=== PATIENT | male | born 1955 | race Caucasian/White ===

== ENCOUNTER 2017-11-03 13:46 | Inpatient (IN) | payer OTHER ==
[~2017-11-03] VITALS: Ht 170.2 cm; Wt 70.3 kg
--- NOTE | ~2017-11-03 | OP ---
PATIENT NAME: DIPTI MONTES MEDICAL RECORD: [id number] :57 LOCATION:.[facility] D.2306 ADMISSION DATE:11/03/17 SURGEON: VICTORIA ROTH MD DATE OF OPERATION: 11/03/2017 PRINCIPAL DIAGNOSES: Perforated diverticulitis with localized peritonitis and pneumoperitoneum. POSTOPERATIVE DIAGNOSES: Perforated diverticulitis with abdominal soilage with diffuse lower abdominal peritonitis and pneumoperitoneum and septicemia. PROCEDURES: 1. Jaleesa's procedure (exploratory laparotomy, sigmoid colectomy, and descending end colostomy). 2. Incidental appendectomy. SURGEON: Victoria Roth MD STRAND GALVANIZER: None. DRAINS: 19-Cuban fully fluted closed drainage system. BLOOD LOSS: 150 cc. ANESTHESIA: General. COMPLICATIONS: None. The risks, possible complications, and alternatives to the procedure were explained to the patient. He elects to proceed. The discussion specifically included, but was not limited to, bleeding requiring emergency reoperation, infection, as well as about the probability of an ileostomy or colostomy. The indication for the incidental appendectomy was to avoid diagnostic confusion in the future should the patient have a recurrence or persistence of abdominal pain. Additionally, the appendix was involved in the inflammatory mass down in the pelvis where the perforated diverticulitis had occurred. OPERATIVE COURSE: The patient was conveyed the operating room urgently on 11/03/2017. General anesthesia was induced by the anesthesia staff. The abdomen was sterilely prepped and draped where the lower midline incision was accomplished. Sharp dissection was carried down through skin and subcutaneous tissue. I incised the linea alba. I entered the peritoneal cavity sharply. An Jerry retractor was placed. Blunt dissection was performed down in the pelvis. I broke up some adhesions. There were 2 loops of small bowel that were involved in the inflammatory mass in the pelvis, which consisted of a ruptured abscess. The appendix was also involved in this inflammatory mass. A window was created in the mesoappendix. I then took down the mesoappendix with the laparoscopic open EnSeal device and stapled across the tip of the cecum with a SHAHEEN-75 stapler. I entered the inner sigmoid fossa. I chose the proximal extent of my resection to be juncture of the descending and sigmoid colons. A window was created in OPERATIVE REPORT [id number] DIPTI MONTES the mesocolon here and I stapled across the colon with a SHAHEEN-75 stapler. I then dissected down into the pelvis. I began to takedown the mesocolon of the sigmoid colon with the open EnSeal device. I incised on either side of the pelvis, I identified both ureters, which were undamaged during the entire operation. They were encircled with umbilical tapes. I continued my dissection onto the mesorectum. I then dissected down to the further static area that I could reach and this was at the upper third of the rectum. I stapled across the rectum with the contour stapler. I then wanted to identify the rectal stump and I did this by suturing a #1 Prolene to the rectal stump and then tying it. The proximal rectum and sigmoid colon were then sent as a single specimen to pathology. I irrigated in the abdomen and aspirated. There was no bleeding. Cultures had been obtained due to the amount of purulent material that was found in the abdomen. I ran the small bowel from the ligament of Treitz to the ileocecal valve. It was undamaged during the operation. I brought a 19-Cuban round fully fluted drain through a stab incision in the right flank. The drain was then placed down in the pelvis. A drain suture was placed and the drain was sutured to skin with a 4-0 nylon suture. I ensured that the small bowel was not twisted on its mesentery. A circular defect was accomplished in the abdominal wall in the left lower quadrant. I dissected down through the skin and subcutaneous tissues. A cruciate incision was accomplished. I dissected down into the peritoneal cavity and then I incised the peritoneum. I was able to grasp the stapled end of the colon and brought it out through this wound without any twisting or kinking. I identified arterial Doppler signal within the stump. I sutured a portion of this stapled end of the colon to the abdominal wall to the external oblique aponeurosis with some 3-0 Vicryls. The lower midline incision was closed with a running looped number #1 PDS. A few 3-0 Vicryl sutures were used to approximate subcutaneous tissue and then just a few james were used to approximate the skin at certain areas. I then covered up the lower midline incision and I then matured the colostomy. I excised the staple line. A Broke type of colostomy was then accomplished, which was an everting type colostomy. This was accomplished with circumferential 3-0 Vicryl sutures. A stomal appliance was then applied. The patient was then extubated and conveyed to post-anesthesia care unit where he was in stable condition. TRANSINT:[id number] Voice Confirmation ID: [id number] DOCUMENT ID: [id number] OPERATIVE REPORT [id number] DIPTI MONTES, VICTORIA DONIS at 1047 CC: [id number] DICTATION DATE: 11/03/172041 CASSANDRA DEVELOPER: 11/03/17 2307 ADM IN [place] [id number] [place] [id number]
[2017-11-03] MEDS ORDERED: FLAGYL500 MG PO (14:03)
[2017-11-03] MEDS ORDERED: [UNRECOGNIZED DRUG - REMARK] (14:03)
[2017-11-03] MEDS ORDERED: PROSTATE MEDICATION (14:03)
[2017-11-03 14:18] LABS: BASOPHILS 0.3 % (0-2); EOSINOPHILS 3.6 % (0-7); HEMATOCRIT 40.7 % (42.0-54.0); HEMOGLOBIN 13.2 g/dL (13.5-17.5); IMMATURE GRANULOCYTES 0.5 % (0-5); LYMPHOCYTES 22.2 % (15-50); MCH 31.2 pg (26.0-34.0); MCHC 32.4 g/dL (31.0-37.0); MCV 96.2 fL (80.0-100.0); MONOCYTES 5.3 % (2-11); NEUTROPHILS 68.1 % (40-80); PLATELET COUNT 345 10x3/uL (130-400); RBC 4.23 10x6/uL (4.20-6.10); RDW 14.8 % (11.5-14.5); WBC 9.8 10x3/uL (4.8-10.8)
[2017-11-03 14:34] LABS: ALBUMIN 2.9 g/dL (3.4-5.0); ALKALINE PHOSPHATASE 63 U/L (46-116); ALT (SGPT) 26 U/L (10-68); BILIRUBIN - TOTAL 0.25 mg/dL (0.2-1.3); CALC OSMOLALITY 287 mosm/kg (275-300); CALCIUM 8.3 mg/dL (8.5-10.1); CARBON DIOXIDE 30.8 mmol/L (21.0-32.0); CHLORIDE - SERUM 110 mmol/L (98-107); CREATININE - SERUM 0.9 mg/dL (0.6-1.3); GLUCOSE 105 mg/dL (74-106); POTASSIUM - SERUM 4.7 mmol/L (3.5-5.1); PROTEIN - SERUM 6.2 g/dL (6.4-8.2); SODIUM 144 mmol/L (136-145); UREA NITROGEN 16 mg/dL (7-18); eGFR NON AFRICAN AMERICAN > 90 mL/min (90-120)
[2017-11-03 16:15] VITALS: BP 146/64
[2017-11-03 17:15] VITALS: BP 124/67
[2017-11-03 18:37] LABS: APTT 28.8 SECONDS (22.8-39.4)
[2017-11-03 18:59] LABS: INR 1.26 (0.85-1.17); PROTIME 15.4 SECONDS (11.6-15.0)
[2017-11-03 21:45] VITALS: BP 130/85
[2017-11-03 22:00] VITALS: BP 125/75
[2017-11-03 22:24] VITALS: BP 117/65; BMI 24.7
[2017-11-03 23:00] VITALS: BP 117/78
[2017-11-03 23:48] LABS: APPEARANCE CLEAR (CLEAR); BACTERIA NONE SEEN /hpf (NONE SEEN); BILIRUBIN NEGATIVE (NEGATIVE); COLOR GREEN (YELLOW); EPITHELIAL CELLS NSEEN /hpf (0-5); GLUCOSE NEGATIVE (NEGATIVE); KETONE NEGATIVE (NEGATIVE); NITRITE NEGATIVE (NEGATIVE); PROTEIN NEGATIVE (NEGATIVE); UROBILINOGEN NORMAL (NORMAL); WHITE CELLS - URINE NSEEN /hpf (0-5)
[2017-11-04] VITALS (23 sets, daily range): BP systolic 101–146; BP diastolic 50–91; Ht 170.2 cm; Wt 70.3 kg
[2017-11-04 03:38] LABS: BASOPHILS 0.2 % (0-2); EOSINOPHILS 0.4 % (0-7); HEMOGLOBIN 13.6 g/dL (13.5-17.5); IMMATURE GRANULOCYTES 0.8 % (0-5); LYMPHOCYTES 10.7 % (15-50); MCH 31.5 pg (26.0-34.0); MCHC 33.2 g/dL (31.0-37.0); MCV 94.9 fL (80.0-100.0); MONOCYTES 6.6 % (2-11); NEUTROPHILS 81.3 % (40-80); PLATELET COUNT 324 10x3/uL (130-400); RBC 4.32 10x6/uL (4.20-6.10); RDW 14.7 % (11.5-14.5)
[2017-11-04 03:51] LABS: ALBUMIN 2.2 g/dL (3.4-5.0); ALKALINE PHOSPHATASE 48 U/L (46-116); BILIRUBIN - TOTAL 0.33 mg/dL (0.2-1.3); CALCIUM 7.4 mg/dL (8.5-10.1); CARBON DIOXIDE 28.2 mmol/L (21.0-32.0); CHLORIDE - SERUM 107 mmol/L (98-107); CREATININE - SERUM 0.8 mg/dL (0.6-1.3); GLUCOSE 126 mg/dL (74-106); MAGNESIUM - SERUM 1.5 mg/dL (1.8-2.4); PHOSPHOROUS 3.4 mg/dL (2.5-4.9); POTASSIUM - SERUM 4.3 mmol/L (3.5-5.1); PROTEIN - SERUM 5.1 g/dL (6.4-8.2); SODIUM 140 mmol/L (136-145); eGFR NON AFRICAN AMERICAN > 90 mL/min (90-120)
[2017-11-04 03:52] LABS: ALT (SGPT) 19 U/L (10-68); CALC OSMOLALITY 279 mosm/kg (275-300); UREA NITROGEN 9 mg/dL (7-18)
[2017-11-05] VITALS (23 sets, daily range): BP systolic 123–155; BP diastolic 67–94
[2017-11-06] VITALS (10 sets, daily range): BP systolic 123–146; BP diastolic 67–86
[2017-11-07 03:00] VITALS: BP 118/98
[2017-11-07 09:10] VITALS: BP 146/79
[2017-11-07 15:00] VITALS: BP 128/76
[2017-11-07 17:02] VITALS: BP 147/82
[2017-11-07 21:08] VITALS: BP 155/82
[2017-11-08 04:45] VITALS: BP 129/81
[2017-11-08 08:52] VITALS: BP 138/85
[2017-11-08 11:45] VITALS: BP 137/74
[2017-11-08 15:46] VITALS: BP 121/68
[2017-11-08 21:15] VITALS: BP 142/74
[2017-11-09 00:54] VITALS: BP 136/78
[2017-11-09 05:04] VITALS: BP 134/74
[2017-11-09 20:00] VITALS: BP 130/73
[2017-11-10] VITALS: BP 144/78
[2017-11-10 04:13] VITALS: BP 145/78
[2017-11-10 10:08] VITALS: BP 129/71
[2017-11-10] MEDS ORDERED: HYDROCODON-ACE1 EAC7 PO (16:12)
[2017-11-10] MEDS ORDERED: COLACE100 MG PO (16:13)
== END 2017-11-10 17:40 | disposition home health service (06) | DRG 330 ==
LOC: D.ER 13:46 → D.ICU 17:17 → D.SDCHOLD 17:17 → D.ICU 21:49 → D.MS 11-07 17:02
PROVIDERS: Emergency Medicine; Surgery
PROC: 0DTN4ZZ Resection of Sigmoid Colon, Percutaneous Endoscopic Approach (ICD-10-PCS; principal; 2017-11-03 17:00)
PROC: 0D1M4Z4 Bypass Descending Colon to Cutaneous, Percutaneous Endoscopic Approach (ICD-10-PCS; 2017-11-03 17:00)
PROC: 0DTJ4ZZ Resection of Appendix, Percutaneous Endoscopic Approach (ICD-10-PCS; 2017-11-03 17:00)
DX: K57.21 Diverticulitis of large intestine with perforation and abscess with bleeding (principal); I10 Essential (primary) hypertension; F17.200 Nicotine dependence, unspecified, uncomplicated

== ENCOUNTER 2018-02-01 04:04 | Emergency (ER) | payer OTHER, MEDICARE ==
[~2018-02-01] VITALS: Ht 170.2 cm; Wt 62.7 kg
[~2018-02-01 04:04] MED LIST: COLACE100 MG PO; FLAGYL500 MG PO; HYDROCODON-ACE1 EAC7 PO; PROSTATE MEDICATION; [UNRECOGNIZED DRUG - REMARK]
[2018-02-01 04:11] VITALS: Ht 170.2 cm; Wt 62.7 kg
[2018-02-01 05:08] VITALS: BP 125/97
== END 2018-02-01 04:51 | disposition home or self-care (01) ==
LOC: D.ER 04:04
DX: K40.90 Unilateral inguinal hernia, without obstruction or gangrene, not specified as recurrent (principal); I10 Essential (primary) hypertension; F17.200 Nicotine dependence, unspecified, uncomplicated; Z93.3 Colostomy status

== ENCOUNTER 2018-02-16 06:06 | Emergency (ER) | payer OTHER, MEDICARE ==
[~2018-02-16] VITALS: Ht 170.2 cm; Wt 60.0 kg
[2018-02-16 06:12] VITALS: Ht 170.2 cm; Wt 60.0 kg
[2018-02-16 07:05] LABS: BASOPHILS 0.7 % (0-2); EOSINOPHILS 1.9 % (0-7); HEMOGLOBIN 17.1 g/dL (13.5-17.5); IMMATURE GRANULOCYTES 0.2 % (0-5); LYMPHOCYTES 21.9 % (15-50); MCH 31.2 pg (26.0-34.0); MCHC 33.5 g/dL (31.0-37.0); MCV 93.1 fL (80.0-100.0); MEAN PLATELET VOLUME 9.3 fL (7.4-10.4); MONOCYTES 6.8 % (2-11); NEUTROPHILS 68.5 % (40-80); PLATELET COUNT 335 10x3/uL (130-400); RBC 5.48 10x6/uL (4.20-6.10)
[2018-02-16] MEDS ORDERED: IMODIUM2 MG PO (07:06)
[2018-02-16 07:12] LABS: ALBUMIN 4.1 g/dL (3.4-5.0); ALKALINE PHOSPHATASE 89 U/L (46-116); ALT (SGPT) 23 U/L (10-68); BILIRUBIN - TOTAL 0.41 mg/dL (0.2-1.3); CALC OSMOLALITY 279 mosm/kg (275-300); CALCIUM 9.3 mg/dL (8.5-10.1); CARBON DIOXIDE 29.9 mmol/L (21.0-32.0); CHLORIDE - SERUM 102 mmol/L (98-107); CREATININE - SERUM 0.9 mg/dL (0.6-1.3); GLUCOSE 102 mg/dL (74-106); POTASSIUM - SERUM 4.8 mmol/L (3.5-5.1); PROTEIN - SERUM 7.9 g/dL (6.4-8.2); SODIUM 140 mmol/L (136-145); UREA NITROGEN 14 mg/dL (7-18); eGFR NON AFRICAN AMERICAN > 90 mL/min (90-120)
[2018-02-16 10:36] VITALS: BP 129/68
[2018-02-20] MEDS ORDERED: BUPROPION XL300 MG PO (08:47)
[2018-02-20] MEDS ORDERED: NEURONTIN600 MG PO ×2 (08:48→08:49)
[2018-02-20] MEDS ORDERED: VIBRAMYCIN 100100 MG PO (08:50)
== END 2018-02-16 10:37 | disposition home or self-care (01) ==
LOC: D.ER 06:06
PROVIDERS: Emergency Medicine
DX: R19.7 Diarrhea, unspecified (principal); Z93.3 Colostomy status; F17.200 Nicotine dependence, unspecified, uncomplicated

== ENCOUNTER 2018-02-21 10:15 | Inpatient (IN) | payer MEDICARE, OTHER ==
[2018-02-20 09:49] LABS: HEMATOCRIT 49.3 % (42.0-54.0); HEMOGLOBIN 16.5 g/dL (13.5-17.5); MCH 31.3 pg (26.0-34.0); MCHC 33.5 g/dL (31.0-37.0); MCV 93.5 fL (80.0-100.0); RBC 5.27 10x6/uL (4.20-6.10); RDW 14.1 % (11.5-14.5); WBC 9.1 10x3/uL (4.8-10.8)
[~2018-02-21] VITALS: Ht 170.2 cm; Wt 59.9 kg
--- NOTE | ~2018-02-21 | MORECARE ---
CASE MANAGEMENT DISCHARGE SUMMARY PATIENT: DIPTI MONTES UNIT: [id number] ADM DATE: 02/21/18 AGE: 62 : 57 SEX: M ROOM/BED: D.2237 AUTHOR: EDDI GAN PHYSICIAN: REFERRING PHYSICIAN: VICTORIA ROTH MD DATE OF SERVICE: 02/27/18 Discharge Plan Patient Name: DIPTI MONTES Facility: [facility]:[place] : 1955 Planned Disposition: Home with Home Health Anticipated Discharge Date: Discharge Date: 02/25/2018 Expected LOS: 0 Initial Reviewer: [email or web address] Initial Review Date: 02/24/2018 Generated: 02/27/18 4:52 pm Comments DCP- Discharge Planning Updated by [email or web address]: Yary Jimenez on 02/25/18 4:[address] Patient Name: DIPTI MONTES Admission Status: Elective Accout number: [id number] Admission Date: 02-21-2018 : 1955 Admission Diagnosis:COLOSTOMY STATUS Attending: VICTORIA ROTH Current LOS: 4 Anticipated DC Date: Planned Disposition: Home with Home Health Primary Insurance: [employer] Discharge Planning Comments: I CALLED [facility] AND LEFT A MESSAGE FOR THE HOME HEALTH NURSE TO CALL ME BACK SO I CAN VERIFY THAT HE IS SET UP WITH HOME HEALTH. [place] PHONE NUMBER IS [phone]. WHEN THE NURSE RETURNS MY PHONE CALL I WILL CALL THE PATIENT'S NURSE AND LET HER KNOW. Instructional Support Assistant: Yary Jimenez Appended by Yary Jimenez on 02/25/2018 17:38 ORNAMENTAL RAIL INSTALLER: JAS SPOKE WITH NHAN SAENZ AT [place] AND SHE SAID THE PATIENT DOES HAVE HH WITH THEM. NHAN BURGER NOTIFIED PATIENT IS CURRENT WITH [facility] AND THEY WILL RESUME CARE. DCP- Discharge Planning Updated by [email or web address]: Jannie Laureano on 02/24/18 12:[address] Patient Name: DIPTI MONTES Admission Status: Elective Accout number: [id number] Admission Date: 02-21-2018 : 1955 Admission Diagnosis:COLOSTOMY STATUS Attending: VICTORIA ROTH Current LOS: 3 Anticipated DC Date: Planned Disposition: Home with Home Health Primary Insurance: [employer] Discharge Planning Comments: CM met with patient to discuss discharge planning, he is alone in the room. States he is living with his mother. States he is independent with all ADL's and IADL's. States he has been having [facility] still coming to visit him. States he is supposed to call them on the to have Home health resumed. He is worried that the [facility] not [facility] that [facility] is [facility]. [facility] [place] and spoke to Elaine and informed her of his admit here on Saturday, Elaine was informed that he should be discharged today or tomorrow. Patient declines further discharge needs. CM will continue to follow and assist with discharge planning/needs. Instructional Support Assistant: Jannie Laureano DCPIA - Discharge Planning Initial Assessment Updated by [email or web address]: Jannie Laureano on 02/24/18 1:48 pm * Is the patient Alert and Oriented? Yes * How many steps to enter\exit or inside your home? 2/0 * PCP [facility] * Pharmacy [facility] * Preadmission Environment Home with Family * ADLs Independent * Equipment Rolling Walker Shower Chair * List name and contact numbers for known caregivers / representatives who currently or will assist patient after discharge: Jaydon Solomon - mother - [phone] Love Corea - sister - [phone] * Verbal permission to speak to the caregivers and representatives has been obtained from the patient. Yes * Community resources currently utilized Home Health * Please name any agencies selected above. [facility] * Additional services required to return to the preadmission environment? No * Can the patient safely return to the preadmission environment? Yes * Has this patient been hospitalized within the prior 30 days at any hospital? No Last DP export: 02/25/18 4:44 Patient Name: DIPTI MONTES Page 36651 at 1552 All edits/amendments must be made on the electronic document DICTATION DATE: 02/27/181551 CREATIVE SERVICES INTERN: NINO 02/27/181551 RPT#: [id number] DC DATE:02/25/18 STATUS: DIS IN [facility] [address] [place] [address] END OF REPORT
--- NOTE | ~2018-02-21 | MORECARE ---
CASE MANAGEMENT DISCHARGE SUMMARY PATIENT: DIPTI MONTES UNIT: [id number] ADM DATE: 02/21/18 AGE: 62 : 57 SEX: M ROOM/BED: D.2237 AUTHOR: EDDI GAN PHYSICIAN: REFERRING PHYSICIAN: VICTORIA ROTH MD DATE OF SERVICE: 02/25/18 Discharge Plan Patient Name: DIPTI MONTES Facility: [facility]:[place] : 1955 Planned Disposition: Home with Home Health Anticipated Discharge Date: Discharge Date: Expected LOS: Initial Reviewer: [email or web address] Initial Review Date: 02/24/2018 Generated: 02/25/18 6:44 pm Comments DCP- Discharge Planning Updated by [email or web address]: Yary Jimenez on 02/25/18 4:[address] Patient Name: DIPTI MONTES Admission Status: Elective Accout number: [id number] Admission Date: 02-21-2018 : 1955 Admission Diagnosis:COLOSTOMY STATUS Attending: VICTORIA ROTH Current LOS: 4 Anticipated DC Date: Planned Disposition: Home with Home Health Primary Insurance: [employer] Discharge Planning Comments: I CALLED [facility] AND LEFT A MESSAGE FOR THE HOME HEALTH NURSE TO CALL ME BACK SO I CAN VERIFY THAT HE IS SET UP WITH HOME HEALTH. [place] PHONE NUMBER IS [phone]. WHEN THE NURSE RETURNS MY PHONE CALL I WILL CALL THE PATIENT'S NURSE AND LET HER KNOW. Shrimp Peeling Machine Tender: Yary Jimenez Appended by Yary Jimenez on 02/25/2018 17:38 LOIN TRIMMER: JAS SPOKE WITH NHAN SAENZ AT [place] AND SHE SAID THE PATIENT DOES HAVE HH WITH THEM. NHAN BURGER NOTIFIED PATIENT IS CURRENT WITH [facility] AND THEY WILL RESUME CARE. DCP- Discharge Planning Updated by [email or web address]: Jannie Laureano on 02/24/18 12:[address] Patient Name: DIPTI MONTES Admission Status: Elective Accout number: [id number] Admission Date: 02-21-2018 : 1955 Admission Diagnosis:COLOSTOMY STATUS Attending: VICTORIA ROTH Current LOS: 3 Anticipated DC Date: Planned Disposition: Home with Home Health Primary Insurance: [employer] Discharge Planning Comments: CM met with patient to discuss discharge planning, he is alone in the room. States he is living with his mother. States he is independent with all ADL's and IADL's. States he has been having [facility] still coming to visit him. States he is supposed to call them on the to have Home health resumed. He is worried that the [place] has not been notified that he is here. [facility] called the [facility] [place] and spoke to Elaine and informed her of his admit here on Saturday, Elaine was informed that he should be discharged today or tomorrow. Patient declines further discharge needs. CM will continue to follow and assist with discharge planning/needs. Shrimp Peeling Machine Tender: Jannie Laureano DCPIA - Discharge Planning Initial Assessment Updated by [email or web address]: Jannie Laureano on 02/24/18 1:48 pm * Is the patient Alert and Oriented? Yes * How many steps to enter\exit or inside your home? 2/0 * PCP [facility] * [place]acy [facility] * Preadmission Environment Home with Family * ADLs Independent * Equipment Rolling Walker Shower Chair * List name and contact numbers for known caregivers / representatives who currently or will assist patient after discharge: Jaydon Solomon - mother - [phone] Love Corea - sister - [phone] * Verbal permission to speak to the caregivers and representatives has been obtained from the patient. Yes * Community resources currently utilized Home Health * Please name any agencies selected above. [facility] * Additional services required to return to the preadmission environment? No * Can the patient safely return to the preadmission environment? Yes * Has this patient been hospitalized within the prior 30 days at any hospital? No Last DP export: 02/25/18 4:20 Patient Name: DIPTI MONTES Page 17336 at 8976 All edits/amendments must be made on the electronic document DICTATION DATE: 02/25/181743 TREE TOPPER: NINO 02/25/181743 RPT#: [id number] DC DATE: STATUS: ADM IN [facility] [address] [place] [address] END OF REPORT
--- NOTE | ~2018-02-21 | MORECARE ---
CASE MANAGEMENT DISCHARGE SUMMARY PATIENT: DIPTI MONTES UNIT: [id number] ADM DATE: 02/21/18 AGE: 62 : 57 SEX: M ROOM/BED: D.2237 AUTHOR: EDDI GAN PHYSICIAN: REFERRING PHYSICIAN: VICTORIA ROTH MD DATE OF SERVICE: 02/24/18 Discharge Plan Patient Name: DIPTI MONTES Facility: [facility]:[place] : 1955 Planned Disposition: Home with Home Health Anticipated Discharge Date: Discharge Date: Expected LOS: Initial Reviewer: [id number] Initial Review Date: 02/24/2018 Generated: 02/24/18 2:55 pm Comments DCP- Discharge Planning Updated by [email or web address]: Jannie Laureano on 02/24/18 12:[address] Patient Name: DIPTI MONTES Admission Status: Elective Accout number: [id number] Admission Date: 02-21-2018 : 1955 Admission Diagnosis:COLOSTOMY STATUS Attending: VICTORIA ROTH Current LOS: 3 Anticipated DC Date: Planned Disposition: Home with Home Health Primary Insurance: [facility] [place] [facility] Discharge Planning Comments: CM met with patient to discuss discharge planning, he is alone in the room. States he is living with his mother. States he is independent with all ADL's and IADL's. States he has been having [facility] still coming to visit him. States he is supposed to call them on the to have Home health resumed. He is worried that the [facility] not been [facility] that he is here. I called the [facility] in [place] and spoke to Elaine and informed her of his admit here on Saturday, Elaine was informed that he should be discharged today or tomorrow. Patient declines further discharge needs. CM will continue to follow and assist with discharge planning/needs. Brazing Machine Operator Automatic: Jannie Laureano DCPIA - Discharge Planning Initial Assessment Updated by [email or web address]: Jannie Laureano on 02/24/18 1:48 pm * Is the patient Alert and Oriented? Yes * How many steps to enter\exit or inside your home? 2/0 * PCP [facility] * Pharmacy [facility] * Preadmission Environment Home with Family * ADLs Independent * Equipment Rolling Walker Shower Chair * List name and contact numbers for known caregivers / representatives who currently or will assist patient after discharge: Jaydon Solomon - mother - [phone] Love Corea - sister - [phone] * Verbal permission to speak to the caregivers and representatives has been obtained from the patient. Yes * Community resources currently utilized Home Health * Please name any agencies selected above. [facility] * Additional services required to return to the preadmission environment? No * Can the patient safely return to the preadmission environment? Yes * Has this patient been hospitalized within the prior 30 days at any hospital? No Last DP export: 02/24/18 12:47 Patient Name: DIPTI MONTES Page 89815 at 1355 All edits/amendments must be made on the electronic document DICTATION DATE: 02/24/18 1354 BLANKER PRESS OPERATOR: NINO 02/24/18 1354 RPT#: [id number] [place] DATE: STATUS: ADM IN [facility] [address] [place] [address] END OF REPORT
--- NOTE | ~2018-02-21 | MORECARE ---
CASE MANAGEMENT DISCHARGE SUMMARY PATIENT: DIPTI MONTES UNIT: [id number] ADM DATE: 02/21/18 AGE: 62 : 57 SEX: M ROOM/BED: D.2237 AUTHOR: EDDI GAN PHYSICIAN: REFERRING PHYSICIAN: VICTORIA ROTH MD DATE OF SERVICE: 02/24/18 Discharge Plan Patient Name: DIPTI MONTES [facility] [facility] 1955 Planned Disposition: Home with Home Health Anticipated Discharge Date: Discharge Date: Expected LOS: Initial Reviewer: [email or web address] Initial Review Date: 02/24/2018 Generated: 02/24/18 2:47 pm Patient Name: DIPTI MONTES Page 00106 at 1347 All edits/amendments must be made on the electronic document DICTATION DATE: 02/24/18 1347 CASINO CHANGE ATTENDANT: NINO 02/24/18 1347 RPT#: [id number] [place] DATE: STATUS: ADM IN [facility] [address] [place] [address] END OF REPORT
--- NOTE | ~2018-02-21 | MORECARE ---
CASE MANAGEMENT DISCHARGE SUMMARY PATIENT: DIPTI MONTES UNIT: [id number] ADM DATE: 02/21/18 AGE: 62 : 57 SEX: M ROOM/BED: D.2237 AUTHOR: EDDI GAN PHYSICIAN: REFERRING PHYSICIAN: VICTORIA ROTH MD DATE OF SERVICE: 02/25/18 Discharge Plan Patient Name: DIPTI MONTES Facility: [facility]:[place] : 1955 Planned Disposition: Home with Home Health Anticipated Discharge Date: Discharge Date: Expected LOS: Initial Reviewer: [email or web address] Initial Review Date: 02/24/2018 Generated: 02/25/18 6:14 pm Comments DCP- Discharge Planning Updated by [email or web address]: Yary Jimenez on 02/25/18 4:[address] Patient Name: DIPTI MONTES Admission Status: Elective Accout number: [id number] Admission Date: 02-21-2018 : 1955 Admission Diagnosis:COLOSTOMY STATUS Attending: VICTORIA ROTH Current LOS: 4 Anticipated DC Date: Planned Disposition: Home with Home Health Primary Insurance: [employer] Discharge Planning Comments: I CALLED [facility] AND LEFT A MESSAGE FOR THE HOME HEALTH NURSE TO CALL ME BACK SO I CAN VERIFY THAT HE IS SET UP WITH HOME HEALTH. [place]'[facility] PHONE NUMBER IS [phone]. WHEN THE NURSE RETURNS MY PHONE CALL I WILL CALL THE PATIENT'S NURSE AND LET HER KNOW. Adz Worker: Yary Jimenez DCP- Discharge Planning Updated by [email or web address]: Jannie Laureano on 02/24/18 12:[address] Patient Name: DIPTI MONTES Admission Status: Elective Accout number: [id number] Admission Date: 02-21-2018 : 1955 Admission Diagnosis:COLOSTOMY STATUS Attending: VICTORIA ROTH Current LOS: 3 Anticipated DC Date: Planned Disposition: Home with Home Health Primary Insurance: [employer] Discharge Planning Comments: CM met with patient to discuss discharge planning, he is alone in the room. States he is living with his mother. States he is independent with all ADL's and IADL's. States he has been having [facility] still coming to visit him. States he is supposed to call them on the to have Home health resumed. He is worried that the [facility] has not been [facility] that he is [facility]. I called the [facility] in [place] and spoke to Elaine and informed her of his admit here on Saturday, Elaine was informed that he should be discharged today or tomorrow. Patient declines further discharge needs. CM will continue to follow and assist with discharge planning/needs. Adz Worker: Jannie Laureano DCPIA - Discharge Planning Initial Assessment Updated by [email or web address]: Jannie Laureano on 02/24/18 1:48 pm * Is the patient Alert and Oriented? Yes * How many steps to enter\exit or inside your home? 2/0 * PCP [facility] * [place] * Preadmission Environment Home with Family * ADLs Independent * Equipment Rolling Walker Shower Chair * List name and contact numbers for known caregivers / representatives who currently or will assist patient after discharge: Jaydon Solomon - mother - [phone] Love Corea - sister - [phone] * Verbal permission to speak to the caregivers and representatives has been obtained from the patient. Yes * Community resources currently utilized Home Health * Please name any agencies selected above. [facility] * Additional services required to return to the preadmission environment? No * Can the patient safely return to the preadmission environment? Yes * Has this patient been hospitalized within the prior 30 days at any hospital? No Last DP export: 02/24/18 12:55 Patient Name: DIPTI MONTES Page 23626 at 1714 All edits/amendments must be made on the electronic document DICTATION DATE: 02/25/181712 HARDWARE INSTALLATION COORDINATOR: NINO 02/25/181712 RPT#: [id number] DC DATE: STATUS: ADM IN [facility] [address] [place] [address] END OF REPORT
--- NOTE | ~2018-02-21 | MORECARE ---
CASE MANAGEMENT DISCHARGE SUMMARY PATIENT: DIPTI MONTES UNIT: [id number] ADM DATE: 02/21/18 AGE: 62 : 57 SEX: M ROOM/BED: D.2237 AUTHOR: EDDI GAN PHYSICIAN: REFERRING PHYSICIAN: VICTORIA ROTH MD DATE OF SERVICE: 02/25/18 Discharge Plan Patient Name: DIPTI MONTES Facility: [facility]:[place] : 1955 Planned Disposition: Home with Home Health Anticipated Discharge Date: Discharge Date: Expected LOS: Initial Reviewer: [email or web address] Initial Review Date: 02/24/2018 Generated: 02/25/18 6:20 pm Comments DCP- Discharge Planning Updated by [email or web address]: Yary Jimenez on 02/25/18 4:[address] Patient Name: DIPTI MONTES Admission Status: Elective Accout number: [id number] Admission Date: 02-21-2018 : 1955 Admission Diagnosis:COLOSTOMY STATUS Attending: VICTORIA ROTH Current LOS: 4 Anticipated DC Date: Planned Disposition: Home with Home Health Primary Insurance: [employer] Discharge Planning Comments: I CALLED [facility] AND LEFT A MESSAGE FOR THE HOME HEALTH NURSE TO CALL ME BACK SO I CAN VERIFY THAT HE IS SET UP WITH HOME HEALTH. [place]'S PHONE NUMBER IS [phone]. WHEN THE NURSE RETURNS MY PHONE CALL I WILL CALL THE PATIENT'S NURSE AND LET HER KNOW. Yarn Twister: Yary Jimenez DCP- Discharge Planning Updated by [email or web address]: Jannie Laureano on 02/24/18 12:[address] Patient Name: DIPTI MONTES Admission Status: Elective Accout number: [id number] Admission Date: 02-21-2018 : 1955 Admission Diagnosis:COLOSTOMY STATUS Attending: VICTORIA ROTH Current LOS: 3 Anticipated DC Date: Planned Disposition: Home with Home Health Primary Insurance: [employer] Discharge Planning Comments: CM met with patient to discuss discharge planning, he is alone in the room. States he is living with his mother. States he is independent with all ADL's and IADL's. States he has been having [facility] still coming to visit him. States he is supposed to call them on the to have Home health resumed. [facility] that [facility]. [facility] called [facility] [place] and spoke to Elaine and informed her of his admit here on Saturday, Elaine was informed that he should be discharged today or tomorrow. Patient declines further discharge needs. CM will continue to follow and assist with discharge planning/needs. Yarn Twister: Jannie Laureano DCPIA - Discharge Planning Initial Assessment Updated by [email or web address]: Jannie Georgi on 02/24/18 1:48 pm * Is the patient Alert and Oriented? Yes * How many steps to enter\exit or inside your home? 2/0 * [facility] * [facility] * Preadmission Environment Home with Family * ADLs Independent * Equipment Rolling Walker Shower Chair * List name and contact numbers for known caregivers / representatives who currently or will assist patient after discharge: Jaydon Solomon - mother - [phone] Love Corea - sister - [phone] * Verbal permission to speak to the caregivers and representatives has been obtained from the patient. Yes * Community resources currently utilized Home Health * Please name any agencies selected above. [facility] * Additional services required to return to the preadmission environment? No * Can the patient safely return to the preadmission environment? Yes * Has this patient been hospitalized within the prior 30 days at any hospital? No External Providers External Provider: [facility] Next Contact Date: Service Request Date: Service Type: Resolution: Reviewer: Comments: Last DP export: 02/25/18 4:14 Patient Name: DIPTI MONTES Page [id number] at 1720 All edits/amendments must be made on the electronic document DICTATION DATE: 02/25/181719 ROLL THREADER OPERATOR: NINO 02/25/181719 RPT#: [id number] DC DATE: STATUS: ADM IN [facility] [address] [place] [address] END OF REPORT
--- NOTE | ~2018-02-21 | OP ---
PATIENT NAME: DIPTI MONTES MEDICAL RECORD: [id number] :[birth year] LOCATION:D.MS [id number] ADMISSION DATE:02/21/18 SURGEON: VICTORIA ROTH MD DATE OF OPERATION: 02/21/2018 PRINCIPAL DIAGNOSES: Colostomy desires reversal and parastomal hernia. POSTOPERATIVE DIAGNOSES: Colostomy desires reversal and parastomal hernia with extensive intraabdominal adhesions. PROCEDURE: 1. Colostomy takedown. 2. Parastomal hernia repair without mesh. SURGEON: Victoria Roth MD DRUG ABUSE TECHNICIAN: Laura Garcia APRN BLOOD LOSS: 150 cc. ANESTHESIA: General. COMPLICATIONS: None. The risks, possible complications and alternatives to procedure were explained to the patient. He elects to proceed. The discussion specifically included, but was not limited to, bleeding requiring emergency reoperation, infection, risk of ileostomy, the risk of another colostomy, the risk of intestinal injury. OPERATIVE COURSE: The patient was conveyed to the operating room electively on 02/21/2018. He was positioned in adjustable stirrups in the lithotomy position. The abdomen and perineum were sterilely prepped and draped. A circular incision was accomplished around the left lower quadrant stoma. I was able to mobilize the colon that was within the parastomal hernia. I then stapled off the end of the colon with the SHAHEEN-75 stapler. I was able to free up the adhesions from the bowel to the parastomal hernia side olivera as well as to the fascia and muscle. I was then able to push the colon back into the abdominal cavity. A midline incision was accomplished. I entered the peritoneal cavity sharply. I then went about an adhesiolysis, which took approximately 45 minutes. Most of the adhesions were grade I to grade II adhesions. There were no full thickness enterotomies. Some seromyotomies were oversewn with 3-0 Vicryl sutures. I then lysed all the adhesions which were pretty extensive and was able to run the small bowel from the ligament of Treitz to the ileocecal valve and then back. There was no evidence of full thickness intestinal injury. The patient was then positioned in a steep Trendelenburg. I packed off the small bowel. I then went below and irrigated out the anus and rectum with Betadine. There was some fecal material that was removed as well. I advanced the EEA sizers. These could be seen down in the pelvis. It was not very much rectum left. I then rescrubbed and regowned. I excised the staple line from the end of the colon. I placed a 29-mm anvil and brought it out through the antimesenteric OPERATIVE REPORT [id number] DIPTI MONTES debi. I then stapled off the end of the colon with a SHAHEEN-75 stapler. Laura then went down below. She advanced the EEA stapler. We advanced the Arrow out through the anterior wall of the rectum. This was attached to the anvil. I ensured that the colon was not twisted. We then tightened down on the EEA device and fired. We then loosened it up and pulled it out. The anastomosis appeared to be intact. We then instilled the pelvis with normal saline. I went down below and I inserted a rigid proctoscope. I inflated the rigid proctoscope and there was no bubbling of air within the pelvis indicating an airtight anastomosis. There were 2 complete donuts of tissue within the EEA stapling device. I ensured the small bowel was not twisted on its mesentery. Both ureters appeared to have been undamaged during the procedure. The bladder did not appear to have been damaged either. I irrigated and aspirated. There was no bleeding. The parastomal hernia was repaired with multiple interrupted horizontal mattress, #1 Surgidacs. I then closed the overlying fascia with multiple interrupted #1 Vicryls. I then loosely closed some of the skin on either side of the main defect with horizontal mattress 3-0 Vicryls. A saline wet to dry dressing was then applied at the end of the operation at this site. In the midline, the fascia was closed with running looped #1 PDS from the cephalad and caudad directions. 3-0 Vicryls were used for the subdermis and then james were used for the cutaneous closure. Sterile dressings were applied. The patient was then extubated and conveyed to the post-anesthesia care unit where he was in stable condition. TRANSINT:[id number] Voice Confirmation ID: [id number] DOCUMENT ID: [id number] VICTORIA ROTH MD at 2824 CC: [id number] DICTATION DATE: 02/22/18 1533 HEAT TREAT PULLER: 02/22/18 2239 ADM IN [address] [id number]
[2018-02-21 08:51] VITALS: BP 115/70; BMI 21.0
[~2018-02-21 10:15] MED LIST changes: +BUPROPION XL300 MG PO; +FLOMAX0.4 MG PO; +IMODIUM2 MG PO; +LIPITOR20 MG PO; +LISINOPRIL5 MG PO; +NEURONTIN600 MG PO; +PROSCAR5 MG PO; +VIBRAMYCIN 100100 MG PO; +VOLTAREN75 MG PO
[2018-02-21 14:20] VITALS: BP 138/69
[2018-02-21 15:26] VITALS: BP 144/84; BMI 20.7
[2018-02-21 21:33] VITALS: BP 124/71
[2018-02-22] VITALS (7 sets, daily range): BP systolic 119–143; BP diastolic 62–80; Ht 170.2 cm; Wt 59.9 kg
[2018-02-22 06:17] LABS: BASOPHILS 0.2 % (0-2); EOSINOPHILS 0.4 % (0-7); HEMATOCRIT 42.4 % (42.0-54.0); HEMOGLOBIN 13.9 g/dL (13.5-17.5); IMMATURE GRANULOCYTES 0.2 % (0-5); LYMPHOCYTES 13.3 % (15-50); MCH 30.3 pg (26.0-34.0); MCHC 32.8 g/dL (31.0-37.0); MCV 92.6 fL (80.0-100.0); MEAN PLATELET VOLUME 9.1 fL (7.4-10.4); MONOCYTES 10.7 % (2-11); NEUTROPHILS 75.2 % (40-80); PLATELET COUNT 303 10x3/uL (130-400); RBC 4.58 10x6/uL (4.20-6.10); RDW 14.2 % (11.5-14.5)
[2018-02-22 06:46] LABS: ALBUMIN 2.6 g/dL (3.4-5.0); ALKALINE PHOSPHATASE 51 U/L (46-116); ALT (SGPT) 14 U/L (10-68); BILIRUBIN - TOTAL 0.46 mg/dL (0.2-1.3); CALC OSMOLALITY 274 mosm/kg (275-300); CALCIUM 7.6 mg/dL (8.5-10.1); CARBON DIOXIDE 21.6 mmol/L (21.0-32.0); CHLORIDE - SERUM 106 mmol/L (98-107); CREATININE - SERUM 0.9 mg/dL (0.6-1.3); GLUCOSE 94 mg/dL (74-106); MAGNESIUM - SERUM 1.8 mg/dL (1.8-2.4); PHOSPHOROUS 3.2 mg/dL (2.5-4.9); POTASSIUM - SERUM 4.3 mmol/L (3.5-5.1); PROTEIN - SERUM 5.3 g/dL (6.4-8.2); SODIUM 137 mmol/L (136-145); UREA NITROGEN 16 mg/dL (7-18); eGFR NON AFRICAN AMERICAN > 90 mL/min (90-120)
[2018-02-22 06:48] LABS: TROPONIN-I < 0.017 ng/mL (0.000-0.060)
[2018-02-23 00:30] VITALS: BP 155/75
[2018-02-23 05:14] VITALS: BP 177/80
[2018-02-23 09:04] VITALS: BP 149/78
[2018-02-23 17:15] VITALS: BP 134/50
[2018-02-23 21:14] VITALS: BP 152/83
[2018-02-24 04:19] VITALS: BP 166/90
[2018-02-24 09:23] VITALS: BP 130/92
[2018-02-24 20:00] VITALS: BP 130/84
[2018-02-25] VITALS: BP 128/80
[2018-02-25 04:00] VITALS: BP 141/83
[2018-02-25 09:34] VITALS: BP 123/75
[2018-02-25 12:45] VITALS: BP 145/80
[2018-02-25 16:52] VITALS: BP 139/84
[2018-02-25] MEDS ORDERED: NORCO 7.5/325 T1 TA1 PO (17:55)
== END 2018-02-25 18:23 | disposition home health service (06) | DRG 346 ==
LOC: D.SDCHOLD 10:15 → D.MS 13:50
PROVIDERS: Anesthesiology; Surgery
PROC: 0DSM0ZZ Reposition Descending Colon, Open Approach (ICD-10-PCS; principal; 2018-02-21 11:40)
PROC: 0WQF0ZZ Repair Abdominal Wall, Open Approach (ICD-10-PCS; 2018-02-21 11:40)
DX: Z43.3 Encounter for attention to colostomy (principal); K43.5 Parastomal hernia without obstruction or gangrene; K66.0 Peritoneal adhesions (postprocedural) (postinfection)

== ENCOUNTER 2018-06-11 07:45 | Day surgery (SDC) | payer MEDICARE, OTHER ==
[2018-06-10 12:52] LABS: HEMATOCRIT 47.1 % (42.0-54.0); HEMOGLOBIN 16.2 g/dL (13.5-17.5); MCH 31.5 pg (26.0-34.0); MCHC 34.4 g/dL (31.0-37.0); MCV 91.6 fL (80.0-100.0); MEAN PLATELET VOLUME 9.3 fL (7.4-10.4); RBC 5.14 10x6/uL (4.20-6.10); RDW 13.4 % (11.5-14.5); WBC 10.4 10x3/uL (4.8-10.8)
[~2018-06-11] VITALS: Ht 168.9 cm; Wt 61.2 kg
--- NOTE | ~2018-06-11 | OP ---
PATIENT NAME: DIPTI MONTES MEDICAL RECORD: [id number] :[birth year] LOCATION:D.OPS ADMISSION DATE: SURGEON: HERACLIO ROTH MD DATE OF OPERATION: 06/11/2018 PREOPERATIVE DIAGNOSIS: Symptomatic left inguinal hernia. POSTOPERATIVE DIAGNOSES: 1. Symptomatic left indirect inguinal hernia. 1. Left cord lipoma. PROCEDURES: 1. Open symptomatic indirect left inguinal hernia repair with bilayered polypropylene mesh. 2. Excision of left cord lipoma. SURGEON: Heraclio Roth MD ANIMAL DAYCARE PROVIDER: None. BLOOD LOSS: Minimal. ANESTHESIA: General. COMPLICATIONS: None. The risks, possible complications and alternatives to the procedure were explained to the patient. He elects to proceed. The discussion specifically included, but was not limited to, bleeding requiring emergency reoperation, infection, testicular injury, this also included the risk of injury to the testicular artery or vein, as well as mesh migration and mesh infection. OPERATIVE COURSE: The patient was conveyed to the operating room electively on 06/11/2018. General anesthesia was induced by the anesthesia staff. The abdomen and genitals were sterilely prepped and draped. A transverse incision was accomplished in the left inguinal area. Sharp dissection was carried down through skin and subcutaneous tissue as well as Riya fascia. The external oblique aponeurosis was then cleaned of overlying connective tissue. The external oblique aponeurosis was then incised along the direction of its fibers. I bluntly dissected down through the internal oblique and transversus abdominis muscle layers. A preperitoneal pocket was fashioned bluntly. An indirect hernia was reduced in its entirety. There was no direct component. No femoral component. A preperitoneal pocket was fashioned. A cord lipoma was identified. I clamped across the cord lipoma and divided distal to the clamp. I then entered the hernia sac. There was no sliding component. No incarcerated contents. I ligated the sac highly with a pursestring 3-0 Vicryl suture. I then transected the sac distal to this. I then cut 2 ovals out of a polypropylene mesh. The 2 ovals were sutured together one on top of the other with #1 Ethibond. This was placed in the preperitoneal space. Once I was satisfied with placement of the mesh, I allowed the muscular layers to come together over the mesh and sutured the muscular OPERATIVE REPORT [id number] DIPTI MONTES layers together with multiple interrupted horizontal mattress 0 Surgidacs incorporating a portion of the underlying mesh with these sutures. The external oblique aponeurosis was closed with running #1 Vicryls. Riya fascia was approximated with interrupted 3-0 Vicryls. The subdermis was approximated with interrupted 3-0 Vicryls. The skin was approximated with a running intracuticular 4-0 Vicryl. Benzoin and Steri-Strips were applied. The patient was then extubated and conveyed to post-anesthesia care unit where he was in stable condition. He will be dismissed home on [place] as well as [place]. I will see him in the office in 2-3 weeks. TRANSINT:[id number] Voice Confirmation ID: [id number] DOCUMENT ID: [id number] HERACLIO ROTH MD CC: [facility] [id number] DICTATION DATE: 06/11/18 1436 CORRESPONDENCE REPRESENTATIVE: 06/11/18 1500 DEP SDC 06/11/18 [place] [id number] [place] [id number]
[~2018-06-11 07:45] MED LIST changes: +LEXAPRO10 MG PO; +NORCO 7.5/325 T1 TA1 PO; +TRAZODONE HCL150 MG PO
[2018-06-11 09:18] VITALS: BP 152/88; Ht 168.9 cm; Wt 61.2 kg
--- NOTE | 2018-06-11 17:37 | NUR ---
1600 IV REMOVED PT URINATED AND INSTRUCTIONS GIVEN. ABDOMINAL BINDER ON 1625 MEDICATED PAIN. PER REQUEST
== END 2018-06-11 17:39 | disposition home or self-care (01) ==
LOC: D.OPS 07:45 → D.PAN 11:45 → D.OPS 17:39
PROVIDERS: Anesthesiology; ATTEND Surgery
DX: K40.90 Unilateral inguinal hernia, without obstruction or gangrene, not specified as recurrent (principal); D17.6 Benign lipomatous neoplasm of spermatic cord; Z01.812 Encounter for preprocedural laboratory examination

== ENCOUNTER → 2018-08-19 12:47 | Outpatient (CLI) | payer MEDICARE, OTHER ==
[2018-06-11 09:18] VITALS: BMI 21.5
== END | disposition home or self-care (01) ==
LOC: D.CT 12:47
PROVIDERS: ATTEND Surgery
DX: R10.32 Left lower quadrant pain (principal)